=== PATIENT | female | born 1965 | race Caucasian/White ===

== ENCOUNTER → 2020-11-30 | Day surgery (SDC) | payer OTHER ==
[~2020-11-30] VITALS: Ht 165.1 cm; Wt 100.3 kg
[~2020-11-30] MED LIST: BACTRIM DS TAB1 EACH PO; CERTAGEN1 EACH PO; CIPRO500 MG PO; COLACE100 MG PO; FEOSOL325 MG PO; GEODON20 MG PO; IBUPROFEN800 MG PO; IRON18 MG PO; MACROBID100 MG PO; NORCO 5-325 TA1 EACH PO; PERCOCET 5-3251 EACH PO; VITAMIN B-121000 MC1 PO; VITAMIN D1000 UNIT PO; VOLTAREN **OUT75 MG PO; WELLBUTRIN XL150 MG PO; ZOFRAN ODT4 MG SL
== END | disposition home or self-care (01) ==
LOC: FAS 07:26
DX: Z12.11 Encounter for screening for malignant neoplasm of colon (principal); K57.30 Diverticulosis of large intestine without perforation or abscess without bleeding; E78.5 Hyperlipidemia, unspecified; G43.909 Migraine, unspecified, not intractable, without status migrainosus; E66.9 Obesity, unspecified; M81.0 Age-related osteoporosis without current pathological fracture; Z68.36 Body mass index [BMI] 36.0-36.9, adult
CPT/HCPCS: J2250; J2704; J7120